=== PATIENT | female | born 1985 | race American Indian/Alaskan Native ===

== ENCOUNTER 2017-07-14 11:14 | Outpatient (CLI) | payer BC ==
--- NOTE | 2017-07-14 14:24 | Cat Scan Report ---
CT ABDOMEN PELVIS WITHOUT CONTRAST: HISTORY: Right lower quadrant abdominal pain. COMPARISON: none. TECHNIQUE: Helical CT in 1.25mm intervals without IV contrast. Sagittal and coronal reconstructions. Please note the patient refused IV contrast. FINDINGS: Lung bases: Normal. Liver: Normal. Biliary system: Normal. Pancreas: Normal. Spleen: Normal. Kidneys/ureters/bladder: Normal. Adrenal glands: Normal. Aorta: Normal. Intestines: Surgical changes are noted in the stomach, correlate with history. There is no evidence for bowel obstruction or focal inflammation. Appendix: Normal. Pelvic viscera: 2.5 cm right ovarian cyst is identified. The uterus and left ovary are unremarkable. Ascites: Trace pelvic ascites. Adenopathy: None. Musculoskeletal: Normal. IMPRESSION: No acute inflammatory process. Normal appendix. 2.5 cm right ovarian cyst. Trace pelvic ascites.
== END 2017-07-14 11:15 | disposition home or self-care (01) ==
LOC: CT 11:14
PROVIDERS: ATTEND Specialist
DX: N83.201 Unspecified ovarian cyst, right side (principal)
CPT/HCPCS: 74176